=== PATIENT | female | born 1995 | race African-American/Black ===

== ENCOUNTER 2022-07-21 10:29 | Outpatient (RCR) | payer OTHER, SELFPAY ==
--- NOTE | 2022-07-21 11:42 | PTOPEVAL1 ---
Assessment and note entered by Azul Donato DPT Evaluation Information Assessment Status Evaluation Reported Pain Level Pain Score 0: Self Report Additional Pain Score Comments Pt delivered a baby 02/24/22 and reports she was diagnosed with a 4th degree perineal tear. Had significant pain and multiple hospital trips during her recovery. Highest pain recently 02/20. Pain increases with her cycle and with intercourse . Causes difficulty sitting on the toilet or certain movements like squatting to pick something up. Also reports an odd sensation at times in her abdomen with doing things like sitting up from laying down. She reports fear at times with picking up her child due to this feeling. Pt delivered a stillborn baby vaginally in 2020. Denies other gynecological problems. Denies urine leakage, urinates 3-4 times a day and sometimes once at night. No pain with urination. Can hold urine a variable amount of time. Reports she has mild fecal incontinence at least once a week but often more, and has had some issues with BM since the middle of her pregnancies. Assessment PT Clinical Summary The patient is presenting to skilled therapy with a history of pelvic pain and fecal incontinence following a and delivery in February 2022. She presents with overall increased pelvic floor muscle tone and pain with palpation of musculature and scar tissue, as well as decreased hip and core strength which are contributing to her pain and difficulty with activities like sitting up, squatting, and toileting. She will benefit from skilled therapy to address these impairments and safely reduce pain and dysfunction. Plan of Care Interventions Electrical Stimulation,Hot Pack/Cold Pack,Manual Therapy,Neuro Re-education,Patient/Caregiver Education,Therapeutic Activities,Therapeutic Exercise,Self-Care/Home Management PT Services Indicated Yes Treatment Frequency and 1 time a week for 6 weeks Duration These treatments will address the objective and functional deficits as defined above. The patient will be advanced safely and appropriately in order for the patient to progress towards his/her prior level of function. Additional exercises will be introduced and as well as a comprehensive home exercise program upon discharge, if needed, ?to ensure carryover of functional gains achieved in the clinic. This treatment plan has been reviewed and agreement upon by the patient.
--- NOTE | 2022-07-28 15:47 | PCPTNOTE ---
Patient forgot about appointment
--- NOTE | 2022-09-01 09:56 | PTOPDC ---
Assessment and note entered by Azul Donato, DPT Evaluation Information Assessment Status Discharge - Pt Not Present Assessment PT Clinical Summary Patient has no showed 3 visits and per our policy will be discharged this date. She has been educated she will need a new script to resume therapy at a later date.
== END 2022-09-02 11:05 | disposition home or self-care (01) ==
LOC: ANHGOSHPT 10:29
PROVIDERS: PCP Internal Medicine
DX: O90.89 Other complications of the puerperium, not elsewhere classified (principal); R52 Pain, unspecified
CPT/HCPCS: 97110; 97162; 99199